=== PATIENT | male | born 1950 | race Caucasian/White ===

== ENCOUNTER 2020-04-21 18:47 | Emergency (ER) | payer MEDICARE ==
[~2020-04-21] VITALS: Ht 182.9 cm; Wt 70.3 kg
[2020-04-21 19:06] VITALS: BP_SYST 157
--- NOTE | 2020-04-21 19:09 | NUR ---
Patient triaged and placed in waiting room. VSS and patient appears in no acute distress at this time. Accompanied by EMS , awaiting available bed, and MD notified of need for MSE.
[2020-04-21] MEDS ORDERED: ONDANSETRON 4 MG ODT TAB PO ONE (19:15)
[2020-04-21] MEDS ORDERED: KETOROLAC TROMETHAMINE 60 MG/2 ML VIAL IM ONE ×2 (19:30→21:51)
--- NOTE | 2020-04-21 21:38 | NUR ---
Received patient to Er w/ c/o h/a and dizziness associated w/ n/v since 1699 today. Patient h/o CV (+) states that sx progressively worse now. Introduced self to patient, positioned for comfort and safety w/ bed to low postiion sr up, continue to monitor. Patient resting quietly. No acute distress noted. Vital signs within normal range.
--- NOTE | 2020-04-21 21:38 | NUR ---
Patient to ER bed 7 to gown for evaluation. Side rails up. Report given to Aristides ERVIN.
[2020-04-21] MEDS ORDERED: ONDANSETRON HCL 4 MG/2 ML VIAL IM ONE (21:45)
--- NOTE | 2020-04-21 21:58 | NUR ---
patient medicated as ordered. Will observe for any adverse reaction. Bed to low position sr up. Continue to monitor.
[2020-04-21 22:25] LABS: BASOPHILS # (AUTO) 0.2 K/uL (0.0-0.2); BASOPHILS % (AUTO) 2.8 % (0.0-2.0); EOSINOPHILS # (AUTO) 0.1 K/uL (0.0-0.4); EOSINOPHILS % (AUTO) 0.7 % (0.0-4.0); HEMATOCRIT 47.5 % (36-54); HEMOGLOBIN 16.2 g/dL (14.0-18.0); LYMPHOCYTES # (AUTO) 0.4 K/uL (1.0-5.5); LYMPHOCYTES % (AUTO) 5.3 % (20.5-51.5); MEAN CORPUSCULAR HEMOGLOBIN 30 pg (27-31); MEAN CORPUSCULAR HGB CONC 34 % (32-36); MEAN CORPUSCULAR VOLUME 89 fL (79.0-98.0); MONOCYTES # (AUTO) 0.2 K/uL (0.0-1.0); MONOCYTES % (AUTO) 2.7 % (1.7-9.3); NEUTROPHILS # (AUTO) 6.9 K/uL (1.8-7.7); NEUTROPHILS % (AUTO) 88.5 % (40.0-70.0); PLATELET COUNT (AUTO) 288 K/uL (130-430); RED BLOOD CELL COUNT(AUTO) 5.37 MIL/uL (4.2-6.2); RED CELL DISTRIBUTION WIDTH 14.8 % (9.0-15.0); WHITE BLOOD COUNT (AUTO) 7.8 K/uL (4.8-10.8)
--- NOTE | 2020-04-21 22:29 | NUR ---
Patient states pain has subsided and that the dizziness has eased up. No adverse reaction noted to medications. Positioned for comfort and safety w/ bed to low position sr up. Patient resting quietly. No acute distress noted. Vital signs within normal range.
[2020-04-21 22:38] LABS: ALBUMIN 3.8 g/dL (3.4-4.8); CALCIUM 9.3 mg/dL (8.4-11.0); CREATININE 0.98 mg/dL (0.55-1.30); POTASSIUM 3.2 mmol/L (3.5-5.1); TOTAL BILIRUBIN 1.4 mg/dL (0.0-1.0)
--- NOTE | 2020-04-21 23:46 | NUR ---
Patient given written and verbal discharge instructions and verbalizes understanding. ER MD discussed with patient the results and treatment provided. Patient in stable condition. ID arm band removed.. Rx of zinc, azithromycin given. Patient educated on pain management and to follow up with PMD. Pain Scale . Opportunity for questions provided and answered. Medication side effect fact sheet provided.
[2020-04-21 23:47] VITALS: BP_SYST 154
== END 2020-04-21 23:47 | disposition home or self-care (01) ==
LOC: SED 18:47
DX: U07.1 COVID-19 (principal); R10.84 Generalized abdominal pain; R11.10 Vomiting, unspecified; M10.9 Gout, unspecified
CPT/HCPCS: 36415; 36600; 71045; 74021; 80053; 82803; 83690; 85025; 96372; 99284; J1885; J2405